=== PATIENT | female | born 1935 | race Caucasian/White ===

== ENCOUNTER 2017-03-07 03:25 | Emergency (ER) | payer OTHER, BC ==
[~2017-03-07] VITALS: Ht 149.9 cm; Wt 57.1 kg
--- NOTE | ~2017-03-07 | EKG ---
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 : 1935 Requested By: Genevieve Cardozo Order Number: [id number] MD: Yves Hurtado Measurements Intervals [place] Rate: 52 P: -20 CT: 191 QRS: 44 QRSD: 96 T: 12 QT: 483 QTc: 450 Interpretive Statements Sinus rhythm Ventricular premature complex Probable left atrial enlargement Baseline wander in lead(s) III Compared to ECG 04/29/2016 16:46:49 nonspecific change in the ST and T-wave segments Electronically Signed On 03-07-2017 8:53:38 CDT by Yves Hurtado [email or web address] <ELECTRONICALLY SIGNED> By: Yves Hurtado MD, [facility] 03/07/17 [id number] [id number] Yves Hurtado MD, [facility] /EPI
[~2017-03-07 03:25] MED LIST: ADULT LOW DOSE81 MG PO; ALPHAGAN P10 ML OP; APAP500; BENICAR40 MG PO; CATAPRES PO; CIPRO500 MG PO; CLARITIN10 MG PO; CLONIDINE0.1 PO; COUMADIN PO; COZAAR 50 MG TA50 M1 PO; CRESTOR10 MG PO; DIAZEPAM2 MG PO; GABAPENTIN 100100 MG PO; KLOR-CON 10 ER10 MEQ; LASIX 40 MG TAB40 M1; MUCINEX600 MG PO; NEURONTIN 300300 M1; NORCO 5-325 TA1 EACH PO; NORVASC5 MG PO; OXYBUTYNIN CHLO10 MG; PEPCID40 MG PO; PRILOSEC40 MG PO; PROTONIX40 MG PO; VERAPAMIL HCL120 M1 PO; VITAMIN D1000 UNI1 PO; ZANTAC 150MG T150 M1 PO; ZPAK PO
[2017-03-07 03:52] LABS: HEMATOCRIT 33.3 % (37.0-47.0); HEMOGLOBIN 10.8 gm/dL (12.0-15.0); MCH 28.7 pg (26.0-34.0); MCHC 32.6 g/dL (28.0-37.0); MCV 87.9 fL (80.0-100.0); PLATELET COUNT 179 thou/uL (150-400); RBC 3.78 mil/uL (4.20-5.00); RDW 15.6 % (10.5-14.5)
[2017-03-07 03:55] LABS: MANUAL DIFF YES
[2017-03-07] MEDS ORDERED: CORTISPORIN OTI10 ML OTIC (03:58)
[2017-03-07] MEDS ORDERED: MIRALAX17 GM PO (03:58)
[2017-03-07] MEDS ORDERED: NITROGLYCERIN0.4 MG SUBLING (03:59)
[2017-03-07] MEDS ORDERED: MENTAX1 TUBE TP (03:59)
[2017-03-07] MEDS ORDERED: ACYCLOVIR 400400 MG PO (04:01)
[2017-03-07] MEDS ORDERED: ONDANSETRON HCL4 M2 PO (04:01)
[2017-03-07] MEDS ORDERED: PROCARDIA XL60 MG PO (04:02)
[2017-03-07] MEDS ORDERED: VITAMIN D 5050000 I1 PO (04:03)
[2017-03-07 04:06] LABS: CALCIUM 9.2 mg/dL (8.5-10.1); CREATININE 1.3 mg/dL (0.6-1.0); POTASSIUM 4.7 mmol/L (3.5-5.1)
[2017-03-07 04:08] LABS: TROPONIN-I 0.2 ng/mL (<0.04-0.07)
[2017-03-07 04:20] LABS: ABSOLUTE NEUTROPHILS 1.7 thou/uL (1.4-8.2); ATYPICAL LYMPHS 2 %; TOTAL CELL COUNT 100
[2017-03-07 06:06] VITALS: BP 132/82
== END 2017-03-07 05:50 | disposition home or self-care (01) ==
LOC: ER 03:25
PROVIDERS: Emergency Medicine
DX: I10 Essential (primary) hypertension (principal); R51 Headache; R79.89 Other specified abnormal findings of blood chemistry; E78.00 Pure hypercholesterolemia, unspecified; K21.9 Gastro-esophageal reflux disease without esophagitis; Z88.8 Allergy status to other drugs, medicaments and biological substances; Z88.5 Allergy status to narcotic agent; Z91.018 Allergy to other foods; Z88.2 Allergy status to sulfonamides

== ENCOUNTER 2017-03-19 06:50 | Emergency (ER) | payer OTHER, BC ==
[~2017-03-19] VITALS: Ht 160 cm; Wt 57.1 kg
--- NOTE | ~2017-03-19 | EKG ---
[address] [place] [address] ELECTROCARDIOGRAM REPORT Name: YU DAVISINE Wilfred Room #: DEP 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 : 1935 Requested By: Eugenio Leiva Order Number: [id number] MD: Yves Hurtado Measurements Intervals [place] Rate: 54 P: -33 ME: 201 QRS: 36 QRSD: 95 T: -4 QT: 473 QTc: 449 Interpretive Statements Sinus rhythm Consider right atrial enlargement Borderline repolarization abnormality Compared to ECG 03/07/2017 03:48:23 No significant change was found Electronically Signed On 03-20-2017 13:22:07 CDT by Yves Hurtado [email or web address] <ELECTRONICALLY SIGNED> By: Yves Hurtado MD, [facility] 03/20/17 1322 Yves Hurtado MD, [facility] /EPI
[~2017-03-19 06:50] MED LIST changes: +ACYCLOVIR 400400 MG PO; +CORTISPORIN OTI10 ML OTIC; +MENTAX1 TUBE TP; +MIRALAX17 GM PO; +NITROGLYCERIN0.4 MG SUBLING; +ONDANSETRON HCL4 M2 PO; +PROCARDIA XL60 MG PO; +VITAMIN D 5050000 I1 PO
[2017-03-19] MEDS ORDERED: ZANTAC 150MG T150 MG PO (06:58)
[2017-03-19] MEDS ORDERED: NIFEDIPINE ER60 M1 PO (06:58)
[2017-03-19] MEDS ORDERED: LASIX 20 MG TAB20 MG PO (06:58)
[2017-03-19 08:34] LABS: HEMATOCRIT 32.6 % (37.0-47.0); HEMOGLOBIN 10.5 gm/dL (12.0-15.0); MCH 28.6 pg (26.0-34.0); MCHC 32.3 g/dL (28.0-37.0); MCV 88.5 fL (80.0-100.0); RBC 3.68 mil/uL (4.20-5.00); RDW 15.4 % (10.5-14.5); WBC 3.4 thou/uL (4.0-11.0)
[2017-03-19 08:42] LABS: CALCIUM 9.1 mg/dL (8.5-10.1); CREATININE 1.1 mg/dL (0.6-1.0); POTASSIUM 4.9 mmol/L (3.5-5.1)
[2017-03-19 08:50] LABS: TROPONIN-I 0.2 ng/mL (<0.04-0.07)
[2017-03-19] MEDS ORDERED: BYSTOLIC 5 MG5 M1 PO (11:36)
[2017-03-19 12:19] VITALS: BP 168/80
== END 2017-03-19 12:30 | disposition home or self-care (01) ==
LOC: ER 06:50
PROVIDERS: Emergency Medicine
DX: I10 Essential (primary) hypertension (principal); R79.89 Other specified abnormal findings of blood chemistry; E78.00 Pure hypercholesterolemia, unspecified; K21.9 Gastro-esophageal reflux disease without esophagitis; Z88.1 Allergy status to other antibiotic agents; Z88.5 Allergy status to narcotic agent; Z91.018 Allergy to other foods; Z88.2 Allergy status to sulfonamides; Z88.8 Allergy status to other drugs, medicaments and biological substances

== ENCOUNTER 2020-02-15 04:39 | Emergency (ER) | payer OTHER, BC ==
[~2020-02-15] VITALS: Ht 162.6 cm; Wt 56.7 kg
[~2020-02-15 04:39] MED LIST changes: +BYSTOLIC 5 MG5 M1 PO; +LASIX 20 MG TAB20 MG PO; +NIFEDIPINE ER60 M1 PO; +ZANTAC 150MG T150 MG PO
[2020-02-15] MEDS ORDERED: FAMOTIDINE 10 M10 MG PO (05:46)
[2020-02-15] MEDS ORDERED: LATANOPROST 0.2.5 ML OPHTHALMIC (05:46)
[2020-02-15 05:48] LABS: ABSOLUTE NEUTROPHILS 1.8 thou/uL (1.4-8.2); BASOPHILS 0.9 % (0.0-2.0); HEMATOCRIT 33.7 % (37.0-47.0); HEMOGLOBIN 10.7 gm/dL (12.0-15.0); LYMPHOCYTES 22.8 % (24.0-44.0); MCH 27.9 pg (26.0-34.0); MCHC 31.9 g/dL (28.0-37.0); MCV 87.4 fL (80.0-100.0); MONOCYTES 10.8 % (1.0-8.0); PLATELET COUNT 168 thou/uL (150-400); POLYS 62.5 % (36.0-66.0); RBC 3.86 mil/uL (4.20-5.00); RDW 15.9 % (10.5-14.5)
[2020-02-15 06:43] LABS: CALCIUM 9.3 mg/dL (8.5-10.1); CREATININE 1.7 mg/dL (0.6-1.0); POTASSIUM 4.3 mmol/L (3.5-5.1)
[2020-02-15 06:53] LABS: ALBUMIN 3.5 g/dL (3.4-5.0); TOTAL BILIRUBIN 0.5 mg/dL (0.2-1.0); TOTAL PROTEIN 7.5 g/dL (6.4-8.2); TROPONIN-I 0.13 ng/mL (<0.06)
[2020-02-15 08:04] VITALS: BP 157/74
--- NOTE | 2020-02-18 08:14 | EKG ---
[facility] [place] [address] ELECTROCARDIOGRAM REPORT Name: KAILEY DAVIS Room #: DEP [facility]#: [id number] Admission: 02/15/20 Attend Phys: Discharge: 02/15/20 Date of : 37 Report #: [id number] THIS REPORT FOR: cc: Olga Contreras MD, Karla L. MD Lundgren,Yves Daniels MD [facility] ~ THIS REPORT FOR: //name// 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 : 1935 Requested By: Christina Richmond Order Number: [id number] MD: Yves Hurtado Measurements Intervals [place] Rate: 57 P: 15 [place]: 244 QRS: 6 QRSD: 102 T: 10 QT: 471 QTc: 459 Interpretive Statements Sinus rhythm Ventricular premature complex Prolonged [place] interval Left ventricular hypertrophy Possible inferior infarct, old Compared to ECG 03/19/2017 07:39:08 Ventricular premature complex(es) now present Electronically Signed On 02-18-2020 8:12:21 CDT by Yves Hurtado [email or web address] <ELECTRONICALLY SIGNED> By: Yves Hurtado MD, [facility] 02/18/20811 2 2 Yves Hurtado MD, [facility] /EPI
== END 2020-02-15 08:14 | disposition home or self-care (01) ==
LOC: ER 04:39
PROVIDERS: Student in an Organized Health Care Education/Training Program
DX: R51 Headache (principal); I10 Essential (primary) hypertension; E78.00 Pure hypercholesterolemia, unspecified; E11.9 Type 2 diabetes mellitus without complications; K21.9 Gastro-esophageal reflux disease without esophagitis; Z88.2 Allergy status to sulfonamides; Z88.5 Allergy status to narcotic agent; Z88.8 Allergy status to other drugs, medicaments and biological substances; Z79.82 Long term (current) use of aspirin; Z79.899 Other long term (current) drug therapy

== ENCOUNTER 2020-05-19 13:33 | Emergency (ER) | payer OTHER, BC ==
[~2020-05-19] VITALS: Ht 160 cm; Wt 55.8 kg
[~2020-05-19 13:33] MED LIST changes: +FAMOTIDINE 10 M10 MG PO; +LATANOPROST 0.2.5 ML OPHTHALMIC
[2020-05-19] MEDS ORDERED: BENICAR20 MG PO (13:42)
[2020-05-19] MEDS ORDERED: NORVASC 2.5 MG2.5 M1 PO (13:42)
[2020-05-19] MEDS ORDERED: CLONIDINE HCL0.2 M2 PO (13:42)
[2020-05-19 14:21] VITALS: BP 125/69
== END 2020-05-19 14:21 | disposition home or self-care (01) ==
LOC: ER 13:33
DX: I10 Essential (primary) hypertension (principal); K59.00 Constipation, unspecified; R09.89 Other specified symptoms and signs involving the circulatory and respiratory systems; R53.81 Other malaise; I48.91 Unspecified atrial fibrillation; E78.00 Pure hypercholesterolemia, unspecified; K21.9 Gastro-esophageal reflux disease without esophagitis; Z79.899 Other long term (current) drug therapy; Z88.5 Allergy status to narcotic agent; Z88.8 Allergy status to other drugs, medicaments and biological substances; Z88.2 Allergy status to sulfonamides

== ENCOUNTER 2021-03-20 23:20 | Emergency (ER) | payer OTHER, BC ==
[~2021-03-20] VITALS: Ht 162.6 cm; Wt 56.5 kg
[~2021-03-20 23:20] MED LIST changes: +BENICAR20 MG PO; +CLONIDINE HCL0.2 M2 PO; +NORVASC 2.5 MG2.5 M1 PO
[2021-03-20] MEDS ORDERED: ELIQUIS2.5 MG PO (23:42)
[2021-03-20] MEDS ORDERED: CHLORTHALIDONE25 MG PO (23:44)
[2021-03-21 02:47] VITALS: BP 136/87
== END 2021-03-21 02:45 | disposition home or self-care (01) ==
LOC: ER 23:20
DX: I10 Essential (primary) hypertension (principal); R51.9 Headache, unspecified; E78.00 Pure hypercholesterolemia, unspecified; K21.9 Gastro-esophageal reflux disease without esophagitis; Z88.2 Allergy status to sulfonamides; Z88.8 Allergy status to other drugs, medicaments and biological substances; Z91.018 Allergy to other foods